=== PATIENT | male | born 1980 | race Caucasian/White ===

== ENCOUNTER 2021-05-23 10:06 | Inpatient (IN) | payer SELFPAY ==
[~2021-05-23] VITALS: Ht 182.9 cm; Wt 96.2 kg
[2021-05-23 10:55] LABS: EOS # 0.16 K/mm3 (0.04-0.40); EOS % 0.6 % (0.0-4.0); HEMATOCRIT 43.6 % (42.0-52.0); LYMPH# 0.64 K/mm3 (1.50-4.00); MEAN CELL VOLUME 91 fl (78-100); MEAN CORPUSCULAR HEMOGLOBIN 31 pg (27-31); MEAN CORPUSCULAR HGB CONC 34 g/dL (33-37); MEAN PLATELET VOLUME 9.6 fl (7.4-10.4); MONO # 1.32 K/mm3 (0.20-0.80); NEU # 24.84 K/mm3 (1.40-6.50); PLATELET COUNT 247 K/mm3 (130-400); RED CELL DISTRIBUTION WIDTH 12.6 % (11.5-14.5)
[2021-05-23 11:05] LABS: ALBUMIN 4.1 g/dL (3.5-5.0)
[2021-05-23 11:06] LABS: POTASSIUM 4.6 mmol/L (3.5-5.1)
[2021-05-23 11:07] LABS: CALCIUM 9.3 mg/dL (8.3-10.5)
[2021-05-23 11:08] LABS: TOTAL PROTEIN 7.4 g/dL (6.4-8.3)
[2021-05-23 11:10] LABS: TOTAL BILIRUBIN 1.4 mg/dL (0.2-1.2)
[2021-05-23 11:24] LABS: D-DIMER 7.79 mg/L FEU (0.15-0.50); WHITE BLOOD COUNT 27.1 K/mm3 (4.8-10.8)
[2021-05-23 15:15] VITALS: BP 142/76
[2021-05-23 18:00] VITALS: BP 133/74
[2021-05-23 18:53] LABS: HEMATOCRIT 39.1 % (42.0-52.0); HEMOGLOBIN 13.3 g/dL (13.5-18.0); MEAN PLATELET VOLUME 9.6 fl (7.4-10.4); RED BLOOD COUNT 4.24 M/mm3 (4.20-5.60); RED CELL DISTRIBUTION WIDTH 12.7 % (11.5-14.5)
[2021-05-23 19:04] LABS: WHITE BLOOD COUNT 23.2 K/mm3 (4.8-10.8)
[2021-05-23 19:15] LABS: POTASSIUM 4.1 mmol/L (3.5-5.1); SODIUM 133 mmol/L (136-145)
[2021-05-23 19:16] LABS: CALCIUM 8.8 mg/dL (8.3-10.5)
[2021-05-23 19:17] LABS: GLUCOSE 223 mg/dL (75-110)
[2021-05-23 19:18] LABS: CARBON DIOXIDE 19 mmol/L (22-29)
[2021-05-23 19:25] LABS: URINE APPEARANCE CLEAR; URINE COLOR YELLOW
[2021-05-23 19:26] LABS: URINE BILIRUBIN NEGATIVE (NEGATIVE); URINE BLOOD NEGATIVE (NEGATIVE); URINE GLUCOSE NEGATIVE (NEGATIVE); URINE KETONE 2+ (NEGATIVE); URINE LEUKOCYTE ESTERASE NEGATIVE (NEGATIVE); URINE MUCUS PRESENT (NOT PRESENT); URINE NITRATE NEGATIVE (NEGATIVE); URINE PROTEIN(semi-quant) 1+ mg/dL (NEGATIVE); URINE UROBILINOGEN NORMAL (NORMAL); URINE WBC 0-1 /hpf (0-3)
[2021-05-23 19:40] LABS: TROPONIN-I < 0.03 ng/mL (<0.030)
[2021-05-23 21:57] VITALS: BP 124/68
[2021-05-24 02:10] VITALS: BP 126/70
[2021-05-24 06:17] VITALS: BP 134/81
[2021-05-24 07:19] LABS: HEMATOCRIT 38.8 % (42.0-52.0); HEMOGLOBIN 13.2 g/dL (13.5-18.0); MEAN CELL VOLUME 93 fl (78-100); MEAN CORPUSCULAR HEMOGLOBIN 32 pg (27-31); MEAN CORPUSCULAR HGB CONC 34 g/dL (33-37); MEAN PLATELET VOLUME 10.1 fl (7.4-10.4); PLATELET COUNT 241 K/mm3 (130-400); RED BLOOD COUNT 4.17 M/mm3 (4.20-5.60); RED CELL DISTRIBUTION WIDTH 12.8 % (11.5-14.5)
[2021-05-24 07:25] LABS: WHITE BLOOD COUNT 23.6 K/mm3 (4.8-10.8)
[2021-05-24 07:26] LABS: ALBUMIN 3.9 g/dL (3.5-5.0); POTASSIUM 4.2 mmol/L (3.5-5.1)
[2021-05-24 07:28] LABS: CALCIUM 9.1 mg/dL (8.3-10.5)
[2021-05-24 07:29] LABS: TOTAL PROTEIN 7.1 g/dL (6.4-8.3)
[2021-05-24 07:31] LABS: TOTAL BILIRUBIN 0.7 mg/dL (0.2-1.2)
[2021-05-24 07:39] LABS: BAND 5 % (0-10); NEUTROPHILS 86 % (42-75)
[2021-05-24 07:40] LABS: LYMPHOCYTE 2 % (20-51); MONOCYTE 5 % (3-10)
[2021-05-24 09:48] VITALS: BP 133/68
[2021-05-24 13:37] VITALS: BP 129/70
[2021-05-24 17:31] VITALS: BP 123/69
[2021-05-24 22:00] VITALS: BP 111/57
[2021-05-25 02:07] VITALS: BP 152/76
[2021-05-25 05:54] VITALS: BP 143/78
[2021-05-25 07:33] LABS: BASO # 0.01 K/mm3 (0.02-0.10); EOS # 0.62 K/mm3 (0.04-0.40); EOS % 3.1 % (0.0-4.0); HEMATOCRIT 38.4 % (42.0-52.0); HEMOGLOBIN 12.6 g/dL (13.5-18.0); LYMPH# 1.35 K/mm3 (1.50-4.00); MEAN CELL VOLUME 94 fl (78-100); MEAN CORPUSCULAR HEMOGLOBIN 31 pg (27-31); MEAN CORPUSCULAR HGB CONC 33 g/dL (33-37); MEAN PLATELET VOLUME 9.9 fl (7.4-10.4); MONO # 1.33 K/mm3 (0.20-0.80); NEU # 16.54 K/mm3 (1.40-6.50); PLATELET COUNT 299 K/mm3 (130-400); WHITE BLOOD COUNT 19.9 K/mm3 (4.8-10.8)
[2021-05-25 07:38] LABS: ALBUMIN 3.8 g/dL (3.5-5.0); POTASSIUM 4.1 mmol/L (3.5-5.1)
[2021-05-25 07:40] LABS: CALCIUM 9.2 mg/dL (8.3-10.5)
[2021-05-25 07:43] LABS: TOTAL BILIRUBIN 0.4 mg/dL (0.2-1.2)
[2021-05-25 08:29] LABS: ERYTHROCYTE SEDIMENTATION RATE 46 mm/hr (0-15)
[2021-05-25 10:20] VITALS: BP 136/78
[2021-05-25 14:00] VITALS: BP 153/67
[2021-05-25 17:59] VITALS: BP 145/74
[2021-05-25 22:38] VITALS: BP 146/78
[2021-05-26 02:00] VITALS: BP 134/87
[2021-05-26 06:14] VITALS: BP 123/78
[2021-05-26 07:43] LABS: BASO # 0.01 K/mm3 (0.02-0.10); EOS # 1.08 K/mm3 (0.04-0.40); EOS % 6.8 % (0.0-4.0); HEMATOCRIT 41.1 % (42.0-52.0); HEMOGLOBIN 13.5 g/dL (13.5-18.0); LYMPH# 2.35 K/mm3 (1.50-4.00); MEAN CELL VOLUME 94 fl (78-100); MEAN CORPUSCULAR HEMOGLOBIN 31 pg (27-31); MEAN CORPUSCULAR HGB CONC 33 g/dL (33-37); MEAN PLATELET VOLUME 9.7 fl (7.4-10.4); MONO # 1.34 K/mm3 (0.20-0.80); NEU # 11.07 K/mm3 (1.40-6.50); PLATELET COUNT 304 K/mm3 (130-400); RED BLOOD COUNT 4.36 M/mm3 (4.20-5.60); RED CELL DISTRIBUTION WIDTH 12.8 % (11.5-14.5)
[2021-05-26 07:56] LABS: ALBUMIN 4.1 g/dL (3.5-5.0); POTASSIUM 4.2 mmol/L (3.5-5.1)
[2021-05-26 07:58] LABS: CALCIUM 9.6 mg/dL (8.3-10.5)
[2021-05-26 07:59] LABS: TOTAL PROTEIN 7.3 g/dL (6.4-8.3)
[2021-05-26 08:01] LABS: TOTAL BILIRUBIN 0.3 mg/dL (0.2-1.2)
[2021-05-26 10:00] VITALS: BP 133/76
[2021-05-26 14:01] VITALS: BP 132/81
[2021-05-26] MEDS ORDERED: VIBRAMYCIN HYC100 MG PO (14:32)
[2021-05-26] MEDS ORDERED: PREDNISONE20 MG PO (14:33)
[2021-05-26] MEDS ORDERED: PROAIR HFA0.09 MG/AC IH (14:34)
== END 2021-05-26 16:10 | disposition home or self-care (01) | DRG 195 ==
LOC: ED 10:06 → MED/SURG 15:10
PROVIDERS: Nurse Practitioner; ADMIT Family Medicine
DX: J18.9 Pneumonia, unspecified organism (principal); Z20.822 Contact with and (suspected) exposure to COVID-19; Z86.16 Personal history of COVID-19; R09.02 Hypoxemia; R00.0 Tachycardia, unspecified; T48.6X5A Adverse effect of antiasthmatics, initial encounter
CPT/HCPCS: J0696; J1100; J1650; J3490; J7030; Q9967

== ENCOUNTER → 2021-05-31 | Outpatient (CLI) | payer SELFPAY ==
[~2021-05-31] MED LIST: PREDNISONE20 MG PO; PROAIR HFA0.09 MG/AC IH; VIBRAMYCIN HYC100 MG PO
[2021-05-31 11:48] LABS: HEMATOCRIT 44.2 % (42.0-52.0); HEMOGLOBIN 14.6 g/dL (13.5-18.0); MEAN CELL VOLUME 93 fl (78-100); MEAN CORPUSCULAR HEMOGLOBIN 31 pg (27-31); MEAN CORPUSCULAR HGB CONC 33 g/dL (33-37); MEAN PLATELET VOLUME 9.2 fl (7.4-10.4); PLATELET COUNT 371 K/mm3 (130-400); RED BLOOD COUNT 4.73 M/mm3 (4.20-5.60); RED CELL DISTRIBUTION WIDTH 12.9 % (11.5-14.5)
[2021-05-31 11:53] LABS: WHITE BLOOD COUNT 22.1 K/mm3 (4.8-10.8)
[2021-05-31 12:04] LABS: LYMPHOCYTE 6 % (20-51); MONOCYTE 5 % (3-10); NEUTROPHILS 67 % (42-75); STOMATOCYTE 1+
== END ==
LOC: LAB 09:36
PROVIDERS: Family Medicine
DX: D72.829 Elevated white blood cell count, unspecified (principal); E78.5 Hyperlipidemia, unspecified